=== PATIENT | female | born 1980 | race Two or more races ===

== ENCOUNTER 2021-03-28 18:02 | Emergency (ER) | payer SELFPAY ==
[~2021-03-28] VITALS: Ht 167.6 cm; Wt 67.6 kg
--- NOTE | 2021-03-28 18:12 | NUR ---
AAOX3, BIBRA 89 FROM HOME C/O FEVER, COUGH AND BODYACHES, COVID + SINCE . RESP IS EVEN AND UNLABORED WITH NO APPARENT DISTRESS NOTED. AWAITING MD FOR EVAL.
--- NOTE | 2021-03-28 18:15 | NUR ---
DR HOUSER AT FOR JOEAL.
[2021-03-28] MEDS ORDERED: ONDA4TAB11 PO (18:18)
[2021-03-28 18:35] VITALS: BP 128/95
--- NOTE | 2021-03-28 18:37 | NUR ---
Patient discharged to home in stable condition. Written and verbal after care instructions given. Patient verbalizes understanding of instruction.
== END 2021-03-28 18:38 | disposition home or self-care (01) ==
LOC: ER 18:05
DX: U07.1 COVID-19 (principal); R11.10 Vomiting, unspecified